=== PATIENT | male | born 1995 | race Caucasian/White ===

== ENCOUNTER 2023-05-01 17:07 | Emergency (ER) | payer OTHER ==
--- OUTSIDE RECORDS SUMMARY | 2023-05-01 17:11 | XMS REPORT | Continuity of Care Document ---
:1995 Author Organization [facility] t Address [address] [place] [address] [address] [place] [address] Care Team Providers Name Role Phone Pcp, Patient Does Not Have A Primary Care Physician [id number] Mariam Estrada Attending Clinician Jaclyn West Attending Clinician Mag Reyna Attending Clinician Doctor Unassigned, [place] Attending Clinician Unavailable Provider, [facility] Attending Clinician Unavailable MAG REYNOSO Attending Clinician Unavailable Navdeep Lai Attending Clinician Danitza Dhaliwal Attending Clinician Simon Martinez Attending Clinician Payers Payer Name Policy Type Policy Number Effective Date Expiration Date S ource Problems Condition Condition Condition Status Onset Resolution Last Treating Co mments Source Name Details Category Date Date Treatment Clinician Date M54.5 - M54.5 - Diagnosis Active 2017-2018-01-10 Memoria LOW BACK LOW BACK 6-12 12:12:00 l PAIN T14.8 PAIN T14.8 00:01: He rmann - OTHER - OTHER 00 INJU INJU Active 01/08/2018 [facility] Obesity Obesity Problem Active 2021-11-11 Wy moria (disorder) (disorder) 22:55:10 l Active Ezel Problem 11/11/2021 Medical Group, [facility] No known No known Disease Unive rs active active ity of problems problems [facility] History of Past Illness Condition Condition Condition Status Onset Resolution Last Treating Co mments Source Name Details Category Date Date Treatment Clinician Date Injury of Injury of Problem 2021-11-11 2021-11-11 Memoria conjunctiv conjunctiv -12 03:50:55 03:50:55 l a and a and 18:32: Ezel corneal corneal 00 abrasion abrasion without without foreign foreign body, body, right eye, right eye, initial initial encounter encounter 11/08/2021 2 [facility] Allergies, Adverse Reactions, Alerts Allergy Allergy Status Severity Reaction(s) Onset Inactive Treating Comm ents Source Name Type Date Date Clinician No Known No Known Active Memori a Medicati Medicati l on on Ezel Allergie Allergie s s NO KNOWN Drug Active Univers ALLERGIE Class ity of S [facility] Social History Social Habit Start Date Stop Date Quantity Comments Source Exposure to Yes [facility] SARS-CoV-2 (event) Medica l [facility] Social History 2021-11-08 2021-11-08 [facility] 18:05:40 18:05:40 Tobacco use and 2021-07-31 2021-07-31 Never used [facility] exposure 00:00:00 00:00:00 [facility] Sex Ass[birth year] [facility] 00:00:00 00:00:00 [facility] Smoking Status Start Date Stop Date Source Never smoker [facility] Social History 2018-01-02 20:03:12 2018-01-02 20:03:12 [facility] Medications Ordered Filled Start Stop Current Ordering Indication Dosage Frequency Signature Comments Components Source Medication Medication Date Date Medication? Clinician (SIG) Name Name erythromyci Yes 1 appl, Mem oria n 4-12 BOTH EYES, l ophthalmic 18:33: QID, X 7 Her shoemaker 0.5% 00 day, # 3 ointment gm, 0 Refill(s), Pharmacy: [facility], 193.04, cm, 11/08/21 13:07:00 CDT, Height, 131.364, kg, 11/08/21 13:07:00 CDT, Weight bromphenira 2021- No [id number] 5mL Take 5 mL Univers mine-pseudo 07-31 by mouth 4 i ty of ephedrine-D 00:00: 05:59 (four) Earle as M (BROMFED 00 :00 times Medical DM) 2-30-10 daily as Bran ch mg/5 mL needed for syrup Cold symptoms for up to 10 days. bromphenira 2021- No [id number] 5mL Take 5 mL Univers mine-pseudo 07-31 by mouth 4 i ty of ephedrine-D 00:00: 05:59 (four) Earle as M (BROMFED 00 :00 times Medical DM) 2-30-10 daily as Bran ch mg/5 mL needed for syrup Cold symptoms for up to 10 days. bromphenira 2021- No [id number] 5mL Take 5 mL Univers mine-pseudo 07-31 by mouth 4 i ty of ephedrine-D 00:00: 05:59 (four) Earle as M (BROMFED 00 :00 times Medical DM) 2-30-10 daily as Bran ch mg/5 mL needed for syrup Cold symptoms for up to 10 days. acyclovir Yes 800 mg = 1 Me moria 800 mg oral 02 tab, PO, l tablet 19:38: Q12H, X 5 Gary n 00 day, # 10 tab, 0 Refill(s), Pharmacy: [facility] Betamethaso 2017-07 No 1 appl, Mem oria ne 0.5 07-30 TOP, BID, l MG/ML / 16:08: PRN Apply Maddy nn Clotrimazol 00 to e 10 MG/ML affected Topical areas., X Cream 14 day, # [Lotrisone] 45 gm, 0 Refill(s) diclofenac Yes 75 mg = 1 Me moria sodium 75 5-29 tab, PO, l mg oral 15:47: BID, PRN Gary n enteric 00 Pain, # 60 coated, tab, 0 delayed-rel Refill(s), ease tablet Pharmacy: [facility] cyclobenzap Yes 10 mg = 1 M emoria rine 10 mg 5-29 tab, PO, l oral tablet 15:47: Bedtime, He rmann 00 PRN for muscle spasms, X 15 day, # 15 tab, 0 Refill(s), Pharmacy: [facility] Nystatin 2017-0 No 1 appl, Landon a [id number] 1-25 TOP, BID, l UNT/ML / 20:04: X 14 day, Юлия sariah Solorio 00 # 30 gm, 0 ne Refill(s), Acetonide 1 Pharmacy: MG/ML [facility] Top[facility] #024 Cream Immunizations Ordered Immunization Filled Immunization Date Status Commen ts Source Name Name [id number] Unknown Completed Mem orial Justo [id number] Unknown Completed Mem orial Justo [id number] Vital Signs Vital Name Observation Time Observation Value Comments Source Heart Rate 2021-11-08 18:07:00 [facility] Systolic (mm Hg) 2021-11-08 18:07:00 Johnny rial Justo Diastolic (mm Hg) 2021-11-08 18:07:00 Mem orial Ezel Height 2021-11-08 18:07:00 193.04 cm [facility] Weight 2021-11-08 18:07:00 [facility] BMI Calculated 2021-11-08 18:07:00 Memori al Ezel Systolic (mm Hg) 2019-07-31 19:13:00 Johnny rial Justo Diastolic (mm Hg) 2019-07-31 19:13:00 Mem orial Ezel Heart Rate 2019-07-31 19:13:00 [facility] Temperature Oral (F) 2019-07-31 19:13:00 98.4 F [facility] Height 2019-07-31 19:13:00 193.04 cm [facility] Weight 2019-07-31 19:13:00 [facility] BMI Calculated 2019-07-31 19:13:00 Memori al Ezel Height 2018-05-30 15:54:00 193.04 cm [facility] Systolic (mm Hg) 2018-05-30 15:54:00 Johnny rial Ezel Diastolic (mm Hg) 2018-05-30 15:54:00 Mem orial Ezel Temperature Oral (F) 2018-05-30 15:54:00 98.9 F [facility] Heart Rate 2018-05-30 15:54:00 [facility] Systolic (mm Hg) 2018-01-02 20:02:00 Johnny rial Justo Diastolic (mm Hg) 2018-01-02 20:02:00 Mem orial Justo Weight 2018-01-02 20:02:00 [facility] BMI Calculated 2018-01-02 20:02:00 Memori al Justo Height 2018-01-02 20:02:00 193.04 cm [facility] Temperature Oral (F) 2018-01-02 20:02:00 98.2 F [facility] Respitory Rate 2018-01-02 20:02:00 Memori al Justo Heart Rate 2018-01-02 20:02:00 [facility] BMI Calculated 2017-12-25 15:21:00 Memori al Ezel Respitory Rate 2017-12-25 15:21:00 Memori al Ezel Heart Rate 2017-12-25 15:21:00 [facility] Temperature Oral (F) 2017-12-25 15:21:00 98.2 F [facility] Weight 2017-12-25 15:21:00 [facility] Height 2017-12-25 15:21:00 194 cm [facility] Systolic (mm Hg) 2017-12-25 15:21:00 Johnny rial Justo Diastolic (mm Hg) 2017-12-25 15:21:00 Mem orial Ezel BMI Calculated 2017-08-23 19:53:00 Memori al Ezel Height 2017-08-23 19:53:00 190.5 cm [facility] Systolic (mm Hg) 2017-08-23 19:53:00 Johnny rial Ezel Diastolic (mm Hg) 2017-08-23 19:53:00 Mem orial Justo Temperature Oral (F) 2017-08-23 19:53:00 98.2 F [facility] Respitory Rate 2017-08-23 19:53:00 Memori al Jutso Heart Rate 2017-08-23 19:53:00 [facility] Weight 2017-08-23 19:53:00 [facility] Procedures Procedure Date / Time Performed Performing Clinician [facility]<sup>1</sup> 2004-07-30 06:00:00 Memori al Justo Encounters Start End Encounter Admission Attending Care Care Encounter Source Date/Time Date/Time Type Type Clinicians Facility Department ID 2021-11-09 2021-11-09 Ambulatory nullFlavo [facility] 8 [id number] Memoria 19:20:00 19:20:00 Pre-Reg r Medicine 09 theodore Vega n 2021-11-09 2021-11-09 Ambulatory nullFlavo [facility] 8 [id number] Memoria 15:00:00 15:00:00 Pre-Reg r Medicine 11 theodore Vega n 2021-11-09 2021-11-09 Outpatient MHIE [facility] [id number] Memoria 14:20:00 14:20:00 09 theodore Ezel 2021-11-09 2021-11-09 Outpatient Sean, [facility] [id number] 14:20:00 14:20:00 Mariam Dowell 2021-11-09 2021-11-09 Outpatient MHIE MHIE [id number] Memoria 10:00:00 10:00:00 11 theodore Justo 2021-11-09 2021-11-09 Outpatient West, [facility] MG [id number] 10:00:00 10:00:00 Jaclyn N 11 2021-11-08 2021-11-09 Outpatient nullFlavo [facility] 8 [id number] Memoria 18:00:00 04:59:59 r Medicine 10 theodore Vega n 2021-11-08 2021-11-08 Outpatient West, [facility] [id number] 13:00:00 23:59:59 Jaclyn N 10 2021-11-08 2021-11-08 Outpatient MHIE MHIE [id number] Memoria 13:00:00 13:00:00 10 theodore Justo 2021-08-03 2021-08-03 Telephone [facility] [id number] Univers 00:00:00 00:00:00 tuul Presdo [id number] it y of [place] [id number] Earle as MALIA?BLEA [id number] [address] MEDICAL OFFICE BUILDING 2021-08-03 2021-08-03 Letter Doctor MARTÍNEZ [id number] Univers 00:00:00 00:00:00 (Out) Unassigned, DOMINIC [id number] ity of [place] [facility] [id number] Earle as [id number] [place] [address] [place] 2021-08-01 2021-08-01 Telephone Provider, [facility] [id number] Univers 00:00:00 00:00:00 [facility] [id number] it y of Urgent Care [place] [id number] [place] MALIA?BLEA [id number] Wy dical [address] MEDICAL OFFICE BUILDING 2021-07-31 2021-07-31 Outpatient R OMBROOKS, [facility] [id number] Univers 20:40:00 14:50:50 OMAYEMI ity of [facility] 2019-07-31 2019-08-01 Outpatient nullFlavo [facility] 8 [id number] Memoria 19:15:00 05:59:59 r Medicine 08 theodore mcelroy 2019-07-31 2019-07-31 Outpatient Joelle, [facility] [id number] 13:15:00 23:59:59 Navdeep 08 2019-07-31 2019-07-31 Outpatient MHIE MHIE [id number] Memoria 13:15:00 13:15:00 08 theodore Kemp 2018-05-30 2018-05-31 Outpatient nullFlavo [facility] 8 [id number] Memoria 16:15:00 04:59:59 r Medicine 07 theodore mcelroy 2018-05-30 2018-05-30 Outpatient Madhuri, [facility] [id number] 11:15:00 23:59:59 Danitza Rouse 2018-05-30 2018-05-30 Outpatient MHIE MHIE [id number] Memoria 11:15:00 11:15:00 Padma Kemp 2018-01-10 2018-01-11 Outpt Diag nullFlavo [facility] [id number] Memoria 17:03:00 04:59:00 Services r Outpatient 01 theodore mcelroy [facility] 2018-01-10 2018-01-10 Outpatient Juan [id number] 12:03:00 23:59:00 Jerecia [id number] 01 Eusebio [id number] 5.64 2018-01-07 2018-01-07 Ambulatory nullFlavo [facility] [id number] Memoria 19:10:00 19:10:00 Pre-Reg r Primary 06 theodore Gutierres 2018-01-07 2018-01-07 Outpatient MHIE MHIE [id number] Memoria 14:10:00 14:10:00 06 theodore Kemp 2018-01-07 2018-01-07 Outpatient Juan MG [facility] [id number] 14:10:00 14:10:00 Jerecia Eusebio 2018-01-02 2018-01-03 Outpatient nullFlavo [facility] [id number] Memoria 20:10:00 04:59:59 r Primary 05 theodore Gutierres 2018-01-02 2018-01-02 Outpatient Juan, SHIRLENEMG [facility] [id number] 15:10:00 23:59:59 Jerecia Eileen Eusebio 2018-01-02 2018-01-02 Outpatient MHIE MHIE [id number] Memoria 15:10:00 15:10:00 05 theodore Kemp 2018-01-01 2018-01-01 Ambulatory nullFlavo [facility] [id number] Memoria 16:10:00 16:10:00 Pre-Reg r Primary 04 Vale Gutierres 2018-01-01 2018-01-01 Outpatient MHIE MHIE [id number] Memoria 11:10:00 11:10:00 04 theodore Kemp 2018-01-01 2018-01-01 Outpatient SHIRLENE MartinezMG [facility] [id number] 11:10:00 11:10:00 Jerecia Meli Mylesll 2017-12-25 2017-12-26 Outpatient nullFlavo [facility] [id number] Memoria 15:50:00 04:59:59 r Primary 03 theodore Gutierres 2017-12-25 2017-12-25 Outpatient Juan MG [facility]MG [id number] 10:50:00 23:59:59 Jerecia Camelia Mylesll 2017-12-25 2017-12-25 Outpatient MHIE MHIE [id number] Memoria 10:50:00 10:50:00 03 theodore Kemp 2017-08-23 2017-08-24 Outpatient nullFlavo [facility] [id number] Memoria 19:50:00 05:59:59 r Primary 02 theodore Vale Gutierres 2017-08-23 2017-08-23 Outpatient GUSTAVO Martinez MG [id number] 13:50:00 23:59:59 Jerecia 02 Eusebio 2017-08-23 2017-08-23 Outpatient MHIE MHIE [id number] Memoria 13:50:00 13:50:00 02 theodore Kemp 2016-05-05 2016-05-05 Outpatient MHIE MHIE [id number] Memoria 10:50:00 10:50:00 01 theodore Kemp 2016-05-01 2016-05-01 Outpatient MHIE MHIE [id number] Memoria 15:00:00 15:00:00 00 theodore Kemp Results This patient has no known results.
[2023-05-01] MEDS ORDERED: NA CHLORIDE 0.9% 1,000 ML ONE (17:43)
[2023-05-01 18:02] LABS: Specific Gravity 1.007 (1.005-1.030); Urine Bilirubin NEGATIVE (Negative); Urine Blood Negative (Negative); Urine Clarity Clear (Clear); Urine Color Colorless (Yellow); Urine Glucose NEGATIVE (Negative); Urine Protein NEGATIVE (Negative); Urine Urobilinogen Normal (Normal); Urine pH 7.5 (5.0-7.0)
[2023-05-01 18:04] LABS: Absolute Lymphocytes (CBC) 1.5 K/uL (0.7-4.9); Hematocrit 47.7 % (39.6-49.0); Lymphocytes % 25.7 % (15.3-44.8); MCV 89.9 fL (80-100); MPV 7.2 fL (7.6-11.3); Platelets 255 thou/uL (152-406); RBC Red Blood Cell Count 5.31 M/uL (4.33-5.43)
[2023-05-01 18:09] LABS: Protime INR 0.95
[2023-05-01 18:11] LABS: Barbiturates NEGATIVE (NEGATIVE); Benzodiazepines NEGATIVE (NEGATIVE); Cocaine NEGATIVE (NEGATIVE); METHAMPHETAM NEGATIVE (NEGATIVE); Opiates NEGATIVE (NEGATIVE); Phencyclidine NEGATIVE (NEGATIVE); THC Cannibis NEGATIVE (NEGATIVE)
[2023-05-01 18:15] LABS: Methadone ND (NEGATIVE)
[2023-05-01 18:19] LABS: ALT/SGPT 33 U/L (16-61); AST/SGOT 12 U/L (15-37); Albumin 4.2 g/dL (3.4-5.0); Alkaline Phosphatase 72 U/L (45-117); BUN Blood Urea Nitrogen 7 mg/dL (7-18); Bicarbonate 30 mEq/L (21-32); Bilirubin Direct 0.1 mg/dL (0-0.2); Bilirubin Indirect, Calculated 0.3 mg/dL (0.2-0.8); Bilirubin Total 0.4 mg/dL (0.2-1.0); Glomerular Filtration Rate 123 ml/min (=/>90); Glucose Level 117 mg/dL (74-106); Potassium 3.9 mEq/L (3.5-5.1); Protein, Total 7.5 g/dL (6.4-8.2); Sodium Level 143 mEq/L (136-145)
--- NOTE | 2023-05-02 03:35 | ER ---
Nurse's Notes [facility] Name: Agustin Elias Age: 27 yrs Sex: Male : 1995 Arrival Date: 05/01/2023 Time: 17:07 Bed 16 Private MD: Diagnosis: SI Presentation: 05/01 17:15 Chief complaint: Patient states: Suicidal Ideation x 2 weeks ago. Pt reports he lost aa5 both his partners recently, pt states "I was in a non-monogamous relationship". When asked about a plan, pt states "I was gonna shoot myself". Pt states "I am drunk right now". Coronavirus screen: At this time, the client does not indicate any symptoms associated with coronavirus-19. Ebola Screen: Patient denies travel to an Ebola-affected area in the 21 days before illness onset. Initial Sepsis Screen: Does the patient meet any 2 criteria? HR > 90 bpm. Does the patient have a suspected source of infection? No. Patient's initial sepsis screen is negative. Risk Assessment: Do you want to hurt yourself or someone else? Patient reports desire/thoughts of hurting themselves or someone else. Provider notified. Onset of symptoms was March 2023. 17:15 Acuity: EMIL 2 aa5 17:15 Method Of Arrival: Ambulatory aa5 Historical: - Allergies: 17:20 No Known Allergies; aa5 - Home Meds: 17:20 vitamins [Active]; aa5 - PMHx: 17:20 None; aa5 - PSHx: 17:20 None; aa5 - Immunization history:: Adult Immunizations unknown. - Social history:: Smoking status: Reported history of juuling and/or vaping. Patient uses alcohol, Patient/guardian denies using street drugs. Screenin:25 [facility] ED Fall Risk Assessment (Adult) Score/Fall Risk Level 0 - 2 = Low Risk. Abuse eh3 screen: Denies threats or abuse. Denies injuries from another. Nutritional screening: No deficits noted. Tuberculosis screening: No symptoms or risk factors identified. Assessment: 17:25 General: Appears distressed, Behavior is cooperative, crying. Pain: Denies pain. Neuro: eh3 Level of Consciousness is awake, alert, obeys commands, Oriented to person, place, time, situation. Cardiovascular: Capillary refill < 3 seconds Patient's skin is warm and dry. Rhythm is sinus rhythm. Respiratory: Airway is patent Respiratory effort is even, unlabored, Respiratory pattern is regular, symmetrical. GI: Abdomen is round non-distended. Derm: Skin is pink, warm \\T\\ dry. Musculoskeletal: Circulation, motion, and sensation intact. Range of motion: intact in all extremities. 18:24 Reassessment: Patient appears in no apparent distress at this time. Patient is alert, eh3 oriented x 3, equal unlabored respirations, skin warm/dry/pink. Mother at bedside. 19:29 Reassessment: Pt with eyes closed, equal unlabored respirations, skin warm/dry/pink. eh3 20:30 Reassessment: Pt with eyes closed, equal unlabored respirations, skin warm/dry/pink. eh3 22:37 Reassessment: Patient is alert, oriented x 3, equal unlabored respirations, skin jj7 warm/dry/pink. PT SITTING UP AWAKE IN BED. PT PLEASURE. NO DISTRESS NOTED. STATES HE STILL FEELS BAD MENTALLY. NO NEEDS AT THIS TIME. 05/02 04:07 Reassessment: NURSE TO NURSE REPORT GIVEN TO MARIANNE BLANDON. PT ACCEPTED TO [place] [address] [facility]. Psych: 05/01 17:25 [place] Suicide Severity Screening: In the past month, have you wished you were eh3 or wished you could go to sleep and not wake up? Patient responds "yes." "In the past month, have you actually had any thoughts of killing yourself?" Patient responds "yes." "In your lifetime, have you ever done anything, started to do anything, or prepared to do anything to end your life?" Patient responds "yes." Patient reports suicidal intent occurred greater than 3 months prior. Subjective: Patient's mood is sad, hopeless, Delusions are denied, Hallucinations are denied Having thoughts of suicide. Plan for suicide is shoot self with gun, jump out of moving vehicle. Objective: Patient is cooperative, Speech is normal, Affect is appropriate. Interventions: Removed personal items and placed in bag. Searched person for dangerous items. Urine collected and sent for urine drug test. Belonging list filled out. Patient reassessed during use of restraints. Patient is physically safe. Pt placed in paper scrubs. Safety Checks: Personal items have been removed. Door is open. Visitors are present. Patient uses half liter of liquor, since 0100 today Last use was 1 hours ago. Patient does not have a history of DTs. Commitment: Patient will be a voluntary commitment. Vital Signs: 17:15 BP 122 / 87; Pulse 108; Resp 20 S; Temp 98.6(TE); Pulse Ox 95% on R/A; Weight 129.27 kg aa5 (R); Height 6 ft. 4 in. (R); 05/02 04:02 BP 129 / 82; Pulse 55; Resp 17; Pulse Ox 100% on R/A; bc6 05/01 17:15 Body Mass Index 34.69 (129.27 kg, 193.04 cm) aa5 ED Course: 05/01 17:11 Patient arrived in ED. mg5 17:13 Tita Nelson FNP-C is PHCP. snw 17:13 Minesh Smart MD is Attending Physician. snw 17:15 Arm band placed on. aa5 17:20 Triage completed. aa5 17:22 Angelita Aparicio, RN is Primary Nurse. eh3 17:25 Patient has correct armband on for positive identification. Bed in low position. Adult eh3 w/ patient. Valuables inventory done. Given to family. See valuables checklist. Provided Education on: suicide precautions. 17:45 Inserted saline lock: 22 gauge in left antecubital area, using aseptic technique. Blood eh3 collected. 19:26 PHCP role handed off by Tita Nelson FNP-C kb 19:26 Barbra Nina FNP-C is PHCP. kb 05/02 02:13 Attending Physician role handed off by Minesh Smart MD kb 02:13 Stepan Puentes MD is Attending Physician. kb 03:33 Faxed pt clinicals to the following facilities for placement; [facility], [address], [facility], [facility], [facility], [facility], [facility], [facility]. 04:56 No provider procedures requiring assistance completed. Patient transferred, IV remains jj7 in place. IV discontinued, intact, bleeding controlled, No redness/swelling at site. Pressure dressing applied. Administered Medications: 05/01 17:52 Drug: NS 0.9% IV 1000 ml IV at 1 bolus Per protocol; 1000 mL bolus Route: IV; Rate: 1 eh3 bolus; Site: left antecubital; Medication: 05/02 04:56 VIS not applicable for this client. jj7 Outcome: 03:34 ER care complete, transfer ordered by . sp3 04:11 Transferred [facility] 04:56 Transferred by ground EMS [facility]. to other acute care facility: [address] Transfer form completed. 04:56 Condition: stable [facility] 05:35 Patient left the ED. j7 Signatures: Barbra Nina, CHIEF DATA OFFICER-C CHIEF DATA OFFICER-Ckb Tita Nelson CHIEF DATA OFFICER-C CHIEF DATA OFFICER-Csnw Janey Davis, RN RN aa5 Stepan Puentes MD MD sp3 Angelita Aparicio RN RN eh3 Cipriano Youngblood RN RN jj7 Janie Adler rv1 [facility] Carla Gabriel mg5 Corrections: (The following items were deleted from the chart) 05/01 17:22 17:15 Pulse 108bpm; Resp 20bpm; Spontaneous; Pulse Ox 95% RA; Temp 98.6F Temporal; aa5 129.27 kg Reported; Height 6 ft. 4 in. Reported; BMI: 34.6; aa5 05/02 04:59 04:52 Transferred by ground EMS [facility]. to other acute care facility: [address] Transfer form completed. jj7
--- NOTE | 2023-05-02 03:35 | EDPHYS ---
Physician Documentation [facility] Name: Agustin Elias Age: 27 yrs Sex: Male : 1995 Arrival Date: 05/01/2023 Time: 17:07 Bed 16 Private MD: ED Physician Stepan Puentes HPI: 05/01 17:20 This 27 yrs old Male presents to ER via Unassigned with complaints of Suicidal Ideation.snw 17:20 The patient presents to the emergency department with suicide ideation, and the patient snw has a plan, to shoot self. Onset: The symptoms/episode began/occurred gradually, and became worse this morning. Past psychiatric history: the patient has not had a prior suicide gesture, the patient does not have a previous inpatient psychiatric history, the patient's last psychiatric treatment was none. Associated signs and symptoms: Pertinent positives; ETOH use. Severity of symptoms: At their worst the symptoms were moderate severe. SI in the past but never acted on thoughts. The patient has not recently seen a physician. Pt states what precipitated his SI was the loss of both partners of a "non monogamous" relationship within 12 hours of each other. Historical: - Allergies: 17:20 No Known Allergies; aa5 - Home Meds: 17:20 vitamins [Active]; aa5 - PMHx: 17:20 None; aa5 - PSHx: 17:20 None; aa5 - Immunization history:: Adult Immunizations unknown. - Social history:: Smoking status: Reported history of juuling and/or vaping. Patient uses alcohol, Patient/guardian denies using street drugs. ROS: 17:22 Constitutional: Negative for fever, chills, and weight loss, Eyes: Negative for injury, snw pain, redness, and discharge, ENT: Negative for injury, pain, and discharge, Neck: Negative for injury, pain, and swelling, Cardiovascular: Negative for chest pain, palpitations, and edema, Respiratory: Negative for shortness of breath, cough, wheezing, and pleuritic chest pain, Abdomen/GI: Negative for abdominal pain, nausea, vomiting, diarrhea, and constipation, Back: Negative for injury and pain, : Negative for injury, bleeding, discharge, and swelling, MS/Extremity: Negative for injury and deformity, Skin: Negative for injury, rash, and discoloration, Neuro: Negative for headache, weakness, numbness, tingling, and seizure, 17:22 Allergy/Immunology: Negative for hives, rash, and allergies, 17:22 Psych: Positive for anxiety, depression, suicidal ideation, has been drinking a lot of ETOH since break up, Exam: 17:23 Constitutional: This is a well developed, well nourished patient who is awake, alert, snw and in no acute distress. Head/Face: Normocephalic, atraumatic. Eyes: Pupils equal round and reactive to light, extra-ocular motions intact. Lids and lashes normal. Conjunctiva and sclera are non-icteric and not injected. Cornea within normal limits. Periorbital areas with no swelling, redness, or edema. ENT: Nares patent. No nasal discharge, no septal abnormalities noted. Tympanic membranes are normal and external auditory canals are clear. Oropharynx with no redness, swelling, or masses, exudates, or evidence of obstruction, uvula midline. Mucous membranes moist. Neck: Trachea midline, no thyromegaly or masses palpated, and no cervical lymphadenopathy. Supple, full range of motion without nuchal rigidity, or vertebral point tenderness. No Meningismus. Chest/axilla: Normal chest wall appearance and motion. Nontender with no deformity. No lesions are appreciated. Cardiovascular: Tachycardic rate and rhythm with a normal S1 and S2. No gallops, murmurs, or rubs. Normal PMI, no JVD. No pulse deficits. Respiratory: Lungs have equal breath sounds bilaterally, clear to auscultation and percussion. No rales, rhonchi or wheezes noted. No increased work of breathing, no retractions or nasal flaring. Abdomen/GI: Soft, non-tender, with normal bowel sounds. No distension or tympany. No guarding or rebound. No evidence of tenderness throughout. Back: No spinal tenderness. No costovertebral tenderness. Full range of motion. Skin: Warm, dry with normal turgor. Normal color with no rashes, no lesions, and no evidence of cellulitis. MS/ Extremity: Pulses equal, no cyanosis. Neurovascular intact. Full, normal range of motion. Neuro: Awake and alert, GCS 15, oriented to person, place, time, and situation. Cranial nerves II-XII grossly intact. Motor strength 5/5 in all extremities. Sensory grossly intact. Cerebellar exam normal. Normal gait. Psych: Awake, alert, with orientation to person, place and time. Behavior, mood, and affect are within normal limits. Vital Signs: 17:15 BP 122 / 87; Pulse 108; Resp 20 S; Temp 98.6(TE); Pulse Ox 95% on R/A; Weight 129.27 kg aa5 (R); Height 6 ft. 4 in. (R); 05/02 04:02 BP 129 / 82; Pulse 55; Resp 17; Pulse Ox 100% on R/A; bc6 05/01 17:15 Body Mass Index 34.69 (129.27 kg, 193.04 cm) aa5 MDM: 05/01 17:13 Patient medically screened. snw 17:23 Differential diagnosis: depression, situational deep depressive state with SI. Data snw reviewed: vital signs, nurses notes. 17:24 ED course: Pt presents to triage voluntarily with his Mother asking for help as he is snw severely depressed, drinking, and having suicidal ideation with a plan to shoot himself . 19:06 Transition of care: After a detail discussion of the patient's case, care is snw transferred to Barbra TEAGUE. 05/02 02:12 Transition of care: After a detail discussion of the patient's case, care is kb transferred to Stepan Puentes MD. 05/01 17:19 Order name: Acetaminophen; Complete Time: 18:24 snw 05/01 17:19 Order name: Basic Metabolic Panel; Complete Time: 18:24 snw 05/01 17:19 Order name: CBC with Diff; Complete Time: 18:11 snw 05/01 17:19 Order name: ETOH Level; Complete Time: 18:13 snw 05/01 17:19 Order name: Hepatic Function; Complete Time: 18:24 snw 05/01 17:19 Order name: PT-INR; Complete Time: 18:11 snw 05/01 17:19 Order name: Ptt, Activated; Complete Time: 18:11 snw 05/01 17:19 Order name: Salicylate; Complete Time: 18:30 snw 05/01 17:19 Order name: Urinalysis w/ reflexes; Complete Time: 18:11 snw 05/01 17:19 Order name: Urine Drug Screen; Complete Time: 18:24 snw 05/01 21:09 Order name: ETOH Level; Complete Time: 21:41 kb 05/02 00:40 Order name: ETOH Level; Complete Time: 01:40 kb 05/01 17:19 Order name: EKG; Complete Time: 17:20 snw 05/01 17:19 Order name: EKG - Nurse/Tech; Complete Time: 17:51 snw 05/01 17:19 Order name: IV Saline Lock; Complete Time: 17:51 snw 05/01 17:19 Order name: Labs collected and sent; Complete Time: 17:52 snw 05/01 17:19 Order name: Suicide Precautions; Complete Time: 17:35 snw 05/01 17:19 Order name: Suicide Screening (Bee); Complete Time: 17:52 snw EC/03 17:44 Rate is 87 beats/min. Rhythm is regular. QRS Delta is Normal. TX interval is normal. QRS snw interval is normal. Clinical impression: NSR w/ Non-specific ST/T Changes. Administered Medications: 17:52 Drug: NS 0.9% IV 1000 ml IV at 1 bolus Per protocol; 1000 mL bolus Route: IV; Rate: 1 eh3 bolus; Site: left antecubital; Disposition: 21:05 Co-signature as Attending Physician, Minesh Smart MD I reviewed the patient's care rt provided by the Advanced Practice Provider and agree with the diagnosis and treatment plan. Disposition Summary: 05/02/23 03:34 Transfer Ordered Notes: Transfer Location: Psych Facility sp3 Reason: Higher level of care sp3 Condition: Stable sp3 Problem: an acute exacerbation sp3 Symptoms: have worsened sp3 Accepting Physician: Psych(05/02/23 05:35) [email or web address] Diagnosis - SI sp3 Discharge Instructions: - Discharge Summary Sheet rv1 Forms: - Medication Reconciliation Form sp3 - SBAR form rv1 Signatures: Dispatcher [employer] Barbra Reyez FNP-C FNP-Tita Bennett FNP-C MEDIA ASSISTANT-Janey Mckee RN RN aa5 Stepan Puentes MD MD sp3 Angelita Aparicio RN RN eh3 Cipriano Youngblood RN RN [email or web address] Minesh Smart MD MD rt Corrections: (The following items were deleted from the chart) 05/02 05:35 03:34 Psych sp3 [email or web address]
[2023-05-02 05:51] VITALS: TEMP 98.6
[2023-05-02 05:57] VITALS: BP 129/82; O2SAT 100
--- NOTE | 2023-05-02 16:39 | EKG ---
Test Date: 2023-05-01 Test Time: 17:41:03 [employer]: MARIEL MEASUREMENT RESULTS: Intervals: Rate: 87 ND: 160 QRSD: 100 QT: 348 QTc: 418 [place]: P: 82 ND: 160 QRS: 50 T: 53 INTERPRETIVE STATEMENTS: Normal sinus rhythm Normal ECG No previous ECG available for comparison Electronically Signed On 05-02-23 16:37:35 CDT by Forrest Renteria
== END 2023-05-02 05:35 ==
LOC: ER 17:07
DX: R45.851 Suicidal ideations (principal)
CPT/HCPCS: 93005; 85025; 80048; 36415; 85610; 80076; 85730; 81003; 80307; 80143; 80179; 82077 ×3; J7030; 99285